=== PATIENT | male | born 1970 | race Caucasian/White ===

== ENCOUNTER 2025-08-03 11:29 | Emergency (ER) | payer OTHER ==
[~2025-08-03] VITALS: Ht 167.6 cm; Wt 79.1 kg
[2025-08-03 11:46] VITALS: TEMP 98.2
[2025-08-03] MEDS ORDERED: INS7030 SQ (11:51)
[2025-08-03 12:30] VITALS: BP 123/81; PULSE 94; RESP 17; O2SAT 99
[2025-08-03] MEDS: IBUPROFEN 600 MG TABLET PO ONE (13:58)
[2025-08-03] MEDS ORDERED: ACET-3385 PO (14:03)
[2025-08-03] MEDS ORDERED: IBUP-1492 PO (14:03)
== END 2025-08-03 14:05 | disposition home or self-care (01) ==
LOC: EMS 11:33
DX: M75.82 Other shoulder lesions, left shoulder (principal); S40.012A Contusion of left shoulder, initial encounter; E11.9 Type 2 diabetes mellitus without complications; Z79.899 Other long term (current) drug therapy; Z98.890 Other specified postprocedural states; W51.XXXA Accidental striking against or bumped into by another person, initial encounter; Y93.89 Activity, other specified; Y92.89 Other specified places as the place of occurrence of the external cause; Y99.9 Unspecified external cause status
CPT/HCPCS: 99284; 73030-TC; 73060-TC; 73090-TC; Z7502; Z7610